=== PATIENT | female | born 1970 | race African-American/Black ===

== ENCOUNTER 2019-06-26 12:59 | Inpatient (IN) ==
[2019-06-26] MEDS ORDERED: NS 1000 ML 1,000 ML IV ONE (13:05)
[2019-06-26 16:42] LABS: BASOPHILS # (AUTO) 0.1 X10^3/uL (0.0-0.1); BASOPHILS % (AUTO) 0.8 % (0.2-1.0); EOSINOPHILS # (AUTO) 0.1 x10^3/uL (0.0-0.2); EOSINOPHILS % (AUTO) 0.9 % (0.9-2.9); HEMATOCRIT 36.2 % (36.0-47.0); HEMOGLOBIN 12.3 g/dL (12.0-16.0); LYMPHOCYTES # (AUTO) 2.5 X10^3/uL (1.3-2.9); LYMPHOCYTES % (AUTO) 32.1 % (21.0-51.0); MEAN CORPUSCULAR HGB CONC 33.9 g/dL (33.0-35.0); MEAN CORPUSCULAR VOLUME 88.6 fL (80.0-100.0); MEAN PLATELET VOLUME 8.1 fL (7.4-11.0); MONOCYTES # (AUTO) 0.4 x10^3/uL (0.3-0.8); MONOCYTES % (AUTO) 5.1 % (0.0-13.0); NEUTROPHILS # (AUTO) 4.8 x10^3/uL (2.2-4.8); NEUTROPHILS % (AUTO) 61.1 % (42.0-75.0); PLATELET COUNT 418 X10^3/uL (150.0-450.0); RED BLOOD COUNT 4.09 X10^6/uL (3.5-5.4); RED CELL DISTRIBUTION WIDTH 13.1 % (11.6-16.5); WHITE BLOOD COUNT 7.9 X10^3/uL (3.6-10.0)
[2019-06-26] MEDS ORDERED: NS 1000 ML 1,000 ML ONE (16:49)
[2019-06-26] MEDS ORDERED: ROCEPHIN VIAL 1 GRAM ONE (16:49)
[2019-06-26] MEDS ORDERED: NS 100 ML IV 100 ML IV ONE (16:50)
[2019-06-26 16:54] LABS: ALANINE AMINOTRANSFERASE 35 Units/L (12-78); ALBUMIN 3.4 g/dL (3.4-5.0); ALKALINE PHOSPHATASE 171 Units/L (46-116); AMYLASE 56 Units/L (25-115); ASPARTATE AMINO TRANSFERASE 17 Units/L (15-37); BLOOD UREA NITROGEN 21 mg/dL (7-18); CALCIUM 8.8 mg/dL (8.5-10.1); CARBON DIOXIDE 25.4 mmol/L (21-32); CHLORIDE 94 mmol/L (98-107); COR NA(FOR HYPERGLY) 140 mmol/L (136-145); CREATININE 1.65 mg/dL (0.55-1.02); LIPASE 95 Units/L (73-393); SODIUM 130 mmol/L (136-145); TOTAL PROTEIN 8.5 g/dL (6.4-8.2); eGFR NON BLACK RACES 36 (>60)
[2019-06-26] MEDS: HumuLIN R SC PRN ×2 (17:09→23:00)
[2019-06-26] MEDS ORDERED: HumuLIN R ONE ×2 (17:15→22:56)
[2019-06-26 17:36] VITALS: BMI 39.5
[2019-06-26] MEDS: NS 1000 ML 1,000 ML IV SCH ×2 (19:54→23:42)
[2019-06-26] MEDS: MORPHINE SULFATE INJ 2 MG INJ IVP PRN (20:35)
[2019-06-26 21:54] LABS: BILIRUBIN,URINE NEGATIVE (NEGATIVE); BLOOD/HEMOGLOBIN,URINE NEGATIVE (NEGATIVE); GLUCOSE, URINE 4+ (NEGATIVE); KETONES,URINE NEGATIVE (NEGATIVE); LEUKOCYTE ESTERASE ,URINE NEGATIVE (NEGATIVE); NITRITES,URINE NEGATIVE (NEGATIVE); PROTEIN,URINE NEGATIVE (NEGATIVE); UROBILINOGEN,URINE NORMAL (NORMAL)
[2019-06-26 21:58] LABS: APPEARANCE,URINE CLEAR (CLEAR); COLOR,URINE YELLOW (YELLOW)
[2019-06-27] MEDS: MORPHINE SULFATE INJ 2 MG INJ IVP PRN ×3 (02:05→19:47)
[2019-06-27] MEDS: ZOFRAN INJ 4 MG VIAL IVP PRN ×2 (02:06→19:48)
[2019-06-27] MEDS: HumuLIN R SC PRN ×3 (02:18→20:48)
[2019-06-27] MEDS: NS 1000 ML 1,000 ML IV SCH ×4 (02:59→19:45)
[2019-06-27 06:32] LABS: BASOPHILS % (AUTO) 0.5 % (0.2-1.0); EOSINOPHILS # (AUTO) 0.1 x10^3/uL (0.0-0.2); EOSINOPHILS % (AUTO) 1.3 % (0.9-2.9); HEMATOCRIT 33.2 % (36.0-47.0); HEMOGLOBIN 11.4 g/dL (12.0-16.0); LYMPHOCYTES # (AUTO) 2.4 X10^3/uL (1.3-2.9); LYMPHOCYTES % (AUTO) 35.1 % (21.0-51.0); MEAN CORPUSCULAR HEMOGLOBIN 29.6 pg (27.0-34.0); MEAN CORPUSCULAR HGB CONC 34.3 g/dL (33.0-35.0); MEAN CORPUSCULAR VOLUME 86.2 fL (80.0-100.0); MEAN PLATELET VOLUME 7.7 fL (7.4-11.0); MONOCYTES # (AUTO) 0.5 x10^3/uL (0.3-0.8); NEUTROPHILS # (AUTO) 3.9 x10^3/uL (2.2-4.8); NEUTROPHILS % (AUTO) 56.1 % (42.0-75.0); PLATELET COUNT 364 X10^3/uL (150.0-450.0); RED BLOOD COUNT 3.86 X10^6/uL (3.5-5.4); WHITE BLOOD COUNT 6.9 X10^3/uL (3.6-10.0)
[2019-06-27 06:39] LABS: ALANINE AMINOTRANSFERASE 29 Units/L (12-78); ALBUMIN 2.8 g/dL (3.4-5.0); ALKALINE PHOSPHATASE 141 Units/L (46-116); ASPARTATE AMINO TRANSFERASE 16 Units/L (15-37); BLOOD UREA NITROGEN 18 mg/dL (7-18); CALCIUM 8.2 mg/dL (8.5-10.1); CARBON DIOXIDE 28.4 mmol/L (21-32); CHLORIDE 103 mmol/L (98-107); COR CA(FOR HYPOALB) 9.2 mg/dL (8.5-10.1); COR NA(FOR HYPERGLY) 140 mmol/L (136-145); CREATININE 0.89 mg/dL (0.55-1.02); SODIUM 138 mmol/L (136-145); TOTAL PROTEIN 7.6 g/dL (6.4-8.2); eGFR NON BLACK RACES > 60 (>60)
[2019-06-27] MEDS ORDERED: NS 100 ML IV + SPIKE MINIBAG* 100 ML IV ONE (08:39)
[2019-06-27] MEDS: ROCEPHIN VIAL 1 GRAM IM SCH (09:18)
--- NOTE | 2019-06-27 09:36 | CT ---
HISTORY:Right upper quadrant abdominal painStudy: CT abdomen and pelvis with contrastComparison:NoneTechnique: Multiple axial images of the abdomen and pelvis were obtained with IV contrast. Oral contrast was administered. Dose reduction techniques including Automated Exposure Control (AEC) and adjustment of mA and kV were utilized.FINDINGS:The lung bases are clear. The liver, spleen, pancreas, and adrenal glands are unremarkable in their CT appearance. Gallbladder is removed.No renal calculi or obstructive uropathy. Seen best on coronal image 35, sagittal image 49 and axial image 22 there is tiny subcapsular low attenuation at the upper pole of the right kidney of uncertain etiology with suggestion of minimal adjacent perinephric stranding.No free intraperitoneal air . No evidence of intestinal obstruction or inflammation. Oral contrast reaches the cecum. Appendix is normal. No free fluid or abscess identified.The soft tissues and osseous structures are intact . The vascular structures are unremarkable . No pathologically enlarged lymph nodes are identified.Small amount of intraluminal air seen within the urinary bladder with mild bladder wall thickening.IMPRESSION ABDOMEN/PELVIS:1. Tiny subcapsular hypodensity at the upper pole of the right kidney with adjacent perinephric stranding of uncertain etiology, correlate for renal trauma or infection. Findings could also be chronic in nature, no prior exams are available for comparison.2. Mild urinary bladder wall thickening and small amount of intraluminal air which may be due to recent instrumentation but correlation with urinalysis is recommended to exclude infection.3. Prior cholecystectomy.Electronically signed by: ISRA MILLER (Jun 27, 2019 09:34:42)
[2019-06-27] MEDS ORDERED: GLUCOPHAGE ONE (16:15)
[2019-06-27] MEDS: DIFLUCAN PO SCH (16:26)
[2019-06-27] MEDS: GLUCOPHAGE PO SCH (16:27)
[2019-06-28] MEDS: MORPHINE SULFATE INJ 2 MG INJ IVP PRN ×4 (01:26→17:46)
[2019-06-28] MEDS: ZOFRAN INJ 4 MG VIAL IVP PRN ×3 (01:27→17:46)
[2019-06-28] MEDS: NS 1000 ML 1,000 ML IV SCH ×3 (05:10→17:45)
[2019-06-28] MEDS ORDERED: GLUCOPHAGE ONE ×2 (05:46→17:10)
[2019-06-28 05:48] LABS: ALANINE AMINOTRANSFERASE 29 Units/L (12-78); ALBUMIN 2.7 g/dL (3.4-5.0); ALKALINE PHOSPHATASE 130 Units/L (46-116); ASPARTATE AMINO TRANSFERASE 18 Units/L (15-37); BLOOD UREA NITROGEN 13 mg/dL (7-18); CALCIUM 8.2 mg/dL (8.5-10.1); CARBON DIOXIDE 29.4 mmol/L (21-32); CHLORIDE 102 mmol/L (98-107); COR CA(FOR HYPOALB) 9.2 mg/dL (8.5-10.1); COR NA(FOR HYPERGLY) 140 mmol/L (136-145); CREATININE 0.82 mg/dL (0.55-1.02); SODIUM 136 mmol/L (136-145); TOTAL PROTEIN 7.3 g/dL (6.4-8.2); eGFR NON BLACK RACES > 60 (>60)
[2019-06-28] MEDS: HumuLIN R SC PRN ×3 (05:56→17:41)
[2019-06-28 06:10] LABS: BASOPHILS % (AUTO) 0.6 % (0.2-1.0); EOSINOPHILS # (AUTO) 0.1 x10^3/uL (0.0-0.2); HEMATOCRIT 33.3 % (36.0-47.0); HEMOGLOBIN 11.4 g/dL (12.0-16.0); LYMPHOCYTES # (AUTO) 2.4 X10^3/uL (1.3-2.9); MEAN CORPUSCULAR HEMOGLOBIN 29.8 pg (27.0-34.0); MEAN CORPUSCULAR HGB CONC 34.1 g/dL (33.0-35.0); MEAN CORPUSCULAR VOLUME 87.4 fL (80.0-100.0); MONOCYTES # (AUTO) 0.2 x10^3/uL (0.3-0.8); MONOCYTES % (AUTO) 4.2 % (0.0-13.0); NEUTROPHILS # (AUTO) 3.2 x10^3/uL (2.2-4.8); NEUTROPHILS % (AUTO) 54.2 % (42.0-75.0); PLATELET COUNT 367 X10^3/uL (150.0-450.0); RED BLOOD COUNT 3.81 X10^6/uL (3.5-5.4); RED CELL DISTRIBUTION WIDTH 13.1 % (11.6-16.5); WHITE BLOOD COUNT 5.9 X10^3/uL (3.6-10.0)
[2019-06-28] MEDS: GLUCOPHAGE PO SCH ×2 (06:16→17:39)
[2019-06-28] MEDS: ROCEPHIN VIAL 1 GRAM IM SCH (08:06)
[2019-06-28] MEDS: DIFLUCAN PO SCH (08:06)
[2019-06-28] MEDS: LEVEMIR SC SCH ×2 (14:10→20:37)
[2019-06-28 14:55] LABS: CKMB % 1.5 % (<4); CREATINE KINASE 67 Units/L (26-192); CREATINE KINASE MB < 1.0 ng/mL (0-4.0); TROPONIN I < 0.02 ng/mL (0-1.5)
--- NOTE | 2019-06-28 18:35 | DR.H&P ---
H&P - History & Physical for Day of: H&P Date: 06/26/19 - Chief Complaint Chief Complaint: ABNORMAL LABS, ABDOMINAL PAIN - History of Present Illness History of Present Illness: IS A 48 YEAR OLD PATIENT OF OURS. SHE PRESENTED TO THE HOSPITAL A DIRECT ADMISSION DUE TO ABNORMAL LABS THAT WERE OBTAINED IN THE OFFICE AND RIGHT UPPER QUADRANT ABDOMINAL PAIN. LABS REVEALED HYPERGLYCEMIA, HYPONATREMIA, AND ELEVATED LFTs. ON ARRIVAL TO THE HOSPITAL, VITALS WERE 98.7-109-16-99%-135/76. LABS WERE OBTAINED. ABNORMAL LAB VALUES INCLUDE THE FOLLOWING: SODIUM 130, CHLORIDE 94, BUN 21, CREATININE 1.65, GLUCOSE 530, ALK PHOS 171, TOTAL PROTEIN 8.5, GLOBULIN 5.1, HEMOGLOBIN A1C 12.1. URINALYSIS REVEALED 4+ GLUCOSE, OTHERWISE UNREMARKABLE. SHE WAS STARTED ON NORMAL SALINE AT 100ML/HR, MORPHINE 2MG IV Q4H PRN PAIN, HUMULIN R SLIDING SCALE, AND ZOFRAN 4MG IV Q6H PRN. WE WILL OBTAIN AN ABDOMEN/PELVIS CT WITH CONTRAST IN THE MORNING. OTHERWISE, WE WILL FOLLOW UP WITH AM LABS AND CONTINUE TO MONITOR. - Past Medical History Past Medical History: Diabetes - Past Surgical History Surgical History: Cholecystectomy, Hysterectomy, Ortho Surgery - Family History Family Medical History: Diabetes Mellitus, Cancer, [place], Coronary Artery Disease, Sudden Cardiac , Hypertension - Social History Does patient currently use any type of tobacco product: No Have you used tobacco products in the last 12 months: No Type of Tobacco Use: None Does any household member use tobacco: No Alcohol Use: None Drug Use: None - Medications Home Medications: penicillin G Allergy (Verified 06/26/19 17:31) CONTINUE taking the following medications NK 06/26/19 [History] - Review of Systems Constitutional: Weakness Eyes: No Symptoms Reported ENT: No Symptoms Reported Respiratory: No Symptoms Reported Cardiovascular: No Symptoms Reported Gastrointestinal: See HPI, Nausea, Abdominal Pain Genitourinary: No Symptoms Reported Musculoskeletal: No Symptoms Reported Skin: No Symptoms Reported Neurological: Weakness - Physical Exam Vital Signs: Temperature 98.5 F Pulse Rate [Right Radial] 84 Respiratory Rate 18 Blood Pressure [Right Arm] 187/90 Blood Pressure [Left Arm] 146/85 O2 Sat by Pulse Oximetry 97 Oriented: Normal Eyes: Normal Nose: Normal Throat: Normal Respiratory: Diminished Throughout Cardiovascular: Normal : Normal Auscultation: Bowel Sounds: Normal Palpation: Normal Tenderness: RUQ, Moderate. negative: Rebound, Guarding, Rigidity Skin: Normal Musculoskeletal: Normal Psychiatric: Normal Mood Description: Calm Affect: Normal Speech Pattern: Clear - Assessment/Plan (1) Hyponatremia Status: Acute Plan: NORMAL SALINE AT 100 ML/HR, CONTINUE TO MONITOR (2) Diabetes mellitus with hyperglycemia Qualifiers: Diabetes mellitus type: type 2 Diabetes mellitus intermediate insulin use: without intermediate use Qualified Code(s): E11.65 - Type 2 diabetes mellitus with hyperglycemia Status: Acute Plan: HUMULIN R SLIDING SCALE, CONTINUE TO MONITOR OTBS (3) Abdominal pain Qualifiers: Abdominal location: right upper quadrant Qualified Code(s): R10.11 - Right upper quadrant pain Status: Acute Plan: OBTAIN ABDOMEN/PELVIS CT, MORPHINE PRN, ZOFRAN PRN, CONTINUE TO MONITOR - Allergies Allergies/Adverse Reactions: Allergies Allergy/AdvReac Type Severity Reaction Status Date / Time penicillin G Allergy Verified 06/26/19 17:31
[2019-06-28] MEDS: SNACK - Diabetic Appropriate PO SCH (20:37)
--- NOTE | 2019-06-28 20:46 | PCM.PROG ---
Progress Note - Progress Note for Day of Date of Exam: 06/28/19 - Subjective Subjective: WAS ADMITTED FOR HYPONATREMIA, HYPERGLYCEMIA, AND RUQ ABDOMINAL PAIN. TODAY, SHE IS ALERT AND ORIENTED, LYING IN BED ON MORNING ROUNDS. SHE CONTINUES WITH ABDOMINAL PAIN, BUT REPORTS SLIGHT IMPROVEMENT SINCE YESTERDAY. GLUCOSE LEVELS HAVE DECREASED SINCE STARTING SLIDING SCALE, BUT RE MAIN ELEVATED. ON EXAMINATION, HEART IS REGULAR IN RATE AND RHYTHM. BILATERAL LUNGS ARE NOTED WITH DIMINISHED LUNG SOUNDS THROUGHOUT. ABDOMEN IS ROUND, SOFT, AND NOTED WITH MILD, RUQ TENDERNESS. NORMAL BOWEL SOUNDS IN ALL QUADRANTS. HER VITALS THIS MORNING ARE: 99.2-90-18-99%-146/85. LABS WERE OBTAINED. ABNORMAL LAB VALUES INCLUDE THE FOLLOWING: HGB11.4, HCT 33.3, GLUCOSE 259, CALCIUM 8.2, ALK PHOS 130, ALBUMIN 2.7. AN ABDOMEN/PELVIS CT WAS OBTAINED YESTERDAY AND REVEALED: 1. Tiny subcapsular hypodensity at the upper pole of the right kidney with adjacent perinephric stranding of uncertain etiology, correlate for renal trauma or infection. Findings could also be chronic in nature, no prior exams are available for comparison. 2. Mild urinary bladder wall thickening and small amount of intraluminal air which may be due to recent instrumentation but correlation with urinalysis is recommended to exclude infection. 3. Prior cholecystectomy. SHE IS CURRENTLY RECEIVING NORMAL SALINE AT 100ML/HR, HUMULIN R SLIDING SCALE, MORPHINE PRN, AND ZOFRAN PRN. TODAY, WE WILL START METFORMIN 500MG PO BID AND LEVEMIR 10 UNITS SC BID. OTHERWISE, WE WILL FOLLOW UP WITH AM LABS AND CONTINUE TO MONITOR. - Past Medical Family Social History Past Med/Fam/Surg Hx: No changes since H&P Allergies: Allergies penicillin G Allergy (Verified 06/26/19 17:31) - Review of Systems ROS: No change since H&P - Vital Signs and I&O's Vital Signs: Temperature 98.5 F Pulse Rate [Right Radial] 84 Respiratory Rate 15 Blood Pressure [Right Arm] 187/90 Blood Pressure [Left Arm] 146/85 O2 Sat by Pulse Oximetry 97 Intake and Output: Intake & Output 06/26/19 06/27/19 06/28/19 06/29/19 11:59 11:59 11:59 11:59 Intake Total 1803 / 1803 3680 / 3680 700 / 700 Balance 1803 / 1803 3680 / 3680 700 / 700 - Physical Exam Oriented: Normal Eyes: Normal Nose: Normal Throat: Normal Respiratory: Normal, Diminished Cardiovascular: Normal : Normal Auscultation: Bowel Sounds: Normal Palpation: Normal Tenderness: RUQ, Mild. negative: Rebound, Guarding, Rigidity Skin: Normal Musculoskeletal: Normal Psychiatric: Normal Mood Description: Calm Affect: Normal Speech Pattern: Clear, Appropriate - Laboratory and Diagnostics Result Diagrams: 06/28/19 04:10 06/28/19 04:10 Labs: Laboratory WBC 5.9 X10^3/uL (3.6-10.0) 06/28/19 04:10 RBC 3.81 X10^6/uL (3.5-5.4) 06/28/19 04:10 Hgb 11.4 g/dL (12.0-16.0) L 06/28/19 04:10 Hct 33.3 % (36.0-47.0) L 06/28/19 04:10 MCV 87.4 fL (80.0-100.0) 06/28/19 04:10 MCH 29.8 pg (27.0-34.0) 06/28/19 04:10 MCHC 34.1 g/dL (33.0-35.0) 06/28/19 04:10 RDW 13.1 % (11.6-16.5) 06/28/19 04:10 Plt Count 367 X10^3/uL (150.0-450.0) 06/28/19 04:10 MPV 8.0 fL (7.4-11.0) 06/28/19 04:10 Neut % (Auto) 54.2 % (42.0-75.0) 06/28/19 04:10 Lymph % (Auto) 40.0 % (21.0-51.0) 06/28/19 04:10 [place] % (Auto) 4.2 % (0.0-13.0) 06/28/19 04:10 Eos % (Auto) 1.0 % (0.9-2.9) 06/28/19 04:10 Baso % (Auto) 0.6 % (0.2-1.0) 06/28/19 04:10 Neut # (Auto) 3.2 x10^3/uL (2.2-4.8) 06/28/19 04:10 Lymph # (Auto) 2.4 X10^3/uL (1.3-2.9) 06/28/19 04:10 [place] # (Auto) 0.2 x10^3/uL (0.3-0.8) L 06/28/19 04:10 Eos # (Auto) 0.1 x10^3/uL (0.0-0.2) 06/28/19 04:10 Baso # (Auto) 0.0 X10^3/uL (0.0-0.1) 06/28/19 04:10 Absolute Nucleated RBC 0.1 /100WBC 06/28/19 04:10 Sodium 136 mmol/L (136-145) 06/28/19 04:10 Corrected Sodium 140 mmol/L (136-145) 06/28/19 04:10 Potassium 4.3 mmol/L (3.5-5.1) 06/28/19 04:10 Chloride 102 mmol/L (98-107) 06/28/19 04:10 Carbon Dioxide 29.4 mmol/L (21-32) 06/28/19 04:10 BUN 13 mg/dL (7-18) 06/28/19 04:10 Creatinine 0.82 mg/dL (0.55-1.02) 06/28/19 04:10 Est GFR (MDRD) Af Amer > 60 (>60) 06/28/19 04:10 Est GFR (MDRD) Non-Af > 60 (>60) 06/28/19 04:10 Glucose 259 mg/dL (65-99) H 06/28/19 04:10 POC Glucose (mg/dL) 231 mg/dL (65-99) H 06/28/19 20:03 Hemoglobin A1c 12.1 % 06/26/19 16:34 Calcium 8.2 mg/dL (8.5-10.1) L 06/28/19 04:10 Corrected Calcium 9.2 mg/dL (8.5-10.1) 06/28/19 04:10 Total Bilirubin 0.20 mg/dL (0.2-1.0) 06/28/19 04:10 AST 18 Units/L (15-37) 06/28/19 04:10 ALT 29 Units/L (12-78) 06/28/19 04:10 Alkaline Phosphatase 130 Units/L (46-116) H 06/28/19 04:10 Creatine Kinase 67 Units/L (26-192) 06/28/19 13:59 CK-MB (CK-2) < 1.0 ng/mL (0-4.0) 06/28/19 13:59 CK/CKMB % Calc 1.5 % (<4) 06/28/19 13:59 Troponin I < 0.02 ng/mL (0-1.5) 06/28/19 13:59 Total Protein 7.3 g/dL (6.4-8.2) 06/28/19 04:10 Albumin 2.7 g/dL (3.4-5.0) L 06/28/19 04:10 Globulin 4.6 g/dL (2.5-4.5) H 06/28/19 04:10 Albumin/Globulin Ratio 0.6 Ratio (1.1-2.1) L 06/28/19 04:10 Amylase 56 Units/L (25-115) 06/26/19 16:34 Lipase 95 Units/L (73-393) 06/26/19 16:34 Specimen Type Clean catch urine 06/26/19 21:30 Urine Color Yellow (YELLOW) 06/26/19 21: Urine Appearance Clear (CLEAR) 06/26/19 21:30 Urine pH 5.0 (5.0 - 8.0) 06/26/19 21:30 Ur Specific [place] 1.010 (1.000-1.030) 06/26/19 21:30 Urine Protein Negative (NEGATIVE) 06/26/19 21:30 Urine Glucose (UA) 4+ (NEGATIVE) 06/26/19 21:30 Urine Ketones Negative (NEGATIVE) 06/26/19 21: Urine Occult Blood Negative (NEGATIVE) 06/26/19 21: Urine Nitrite Negative (NEGATIVE) 06/26/19 21: Urine Bilirubin Negative (NEGATIVE) 06/26/19 21: Urine Urobilinogen Normal (NORMAL) 06/26/19 21:30 Ur Leukocyte Esterase Negative (NEGATIVE) 06/26/19 21: - Plan (1) Hyponatremia Status: Acute Plan: NORMAL SALINE AT 100 ML/HR, CONTINUE TO MONITOR (2) Diabetes mellitus with hyperglycemia Status: Acute Qualifiers: Diabetes mellitus type: type 2 Diabetes mellitus fci insulin use: without fci use Qualified Code(s): E11.65 - Type 2 diabetes mellitus with hyperglycemia Plan: HUMULIN R SLIDING SCALE, LEVEMIR 10 UNITS SC BID, METFORMIN 500MG PO BID, CONTINUE TO MONITOR OTBS (3) Abdominal pain Status: Acute Qualifiers: Abdominal location: right upper quadrant Qualified Code(s): R10.11 - Right upper quadrant pain Plan: OBTAIN ABDOMEN/PELVIS CT, MORPHINE PRN, ZOFRAN PRN, CONTINUE TO MONITOR
[2019-06-29] MEDS: MORPHINE SULFATE INJ 2 MG INJ IVP PRN ×3 (00:46→21:55)
[2019-06-29] MEDS: ZOFRAN INJ 4 MG VIAL IVP PRN ×3 (00:47→21:56)
[2019-06-29] MEDS: NS 1000 ML 1,000 ML IV SCH ×4 (03:49→21:08)
[2019-06-29] MEDS ORDERED: GLUCOPHAGE ONE ×3 (04:58→15:58)
[2019-06-29] MEDS: GLUCOPHAGE PO SCH ×2 (06:07→16:08)
[2019-06-29 06:45] LABS: BASOPHILS % (AUTO) 0.3 % (0.2-1.0); EOSINOPHILS % (AUTO) 0.9 % (0.9-2.9); HEMATOCRIT 32.8 % (36.0-47.0); HEMOGLOBIN 11.4 g/dL (12.0-16.0); LYMPHOCYTES # (AUTO) 2.4 X10^3/uL (1.3-2.9); MEAN CORPUSCULAR HEMOGLOBIN 29.9 pg (27.0-34.0); MEAN CORPUSCULAR HGB CONC 34.7 g/dL (33.0-35.0); MEAN CORPUSCULAR VOLUME 86.3 fL (80.0-100.0); MEAN PLATELET VOLUME 7.7 fL (7.4-11.0); MONOCYTES # (AUTO) 0.3 x10^3/uL (0.3-0.8); MONOCYTES % (AUTO) 5.1 % (0.0-13.0); NEUTROPHILS # (AUTO) 2.6 x10^3/uL (2.2-4.8); NEUTROPHILS % (AUTO) 48.7 % (42.0-75.0); PLATELET COUNT 374 X10^3/uL (150.0-450.0); RED BLOOD COUNT 3.81 X10^6/uL (3.5-5.4); WHITE BLOOD COUNT 5.3 X10^3/uL (3.6-10.0)
[2019-06-29 06:48] LABS: ALANINE AMINOTRANSFERASE 26 Units/L (12-78); ALBUMIN 2.7 g/dL (3.4-5.0); ALKALINE PHOSPHATASE 120 Units/L (46-116); ASPARTATE AMINO TRANSFERASE 16 Units/L (15-37); BLOOD UREA NITROGEN 8 mg/dL (7-18); CALCIUM 8.3 mg/dL (8.5-10.1); CARBON DIOXIDE 29.2 mmol/L (21-32); CHLORIDE 102 mmol/L (98-107); COR CA(FOR HYPOALB) 9.3 mg/dL (8.5-10.1); COR NA(FOR HYPERGLY) 139 mmol/L (136-145); CREATININE 0.77 mg/dL (0.55-1.02); SODIUM 136 mmol/L (136-145); TOTAL PROTEIN 7.2 g/dL (6.4-8.2); eGFR NON BLACK RACES > 60 (>60)
[2019-06-29] MEDS: DIFLUCAN PO SCH (08:54)
[2019-06-29] MEDS: LEVEMIR SC SCH ×2 (08:56→21:04)
[2019-06-29] MEDS ORDERED: ROCEPHIN VIAL 1 GRAM 1 G in NS 100 ML IV + SPIKE MINIBAG* 100 ML IV SCH (09:00)
[2019-06-29 13:53] LABS: CRYPTOSPORIDIUM PARVUM ANTIGEN NEGATIVE (NEGATIVE); GIARDIA LAMBLIA ANTIGEN NEGATIVE (NEGATIVE)
[2019-06-29] MEDS: CIPRO IV 400 MG PREMIX* 400 MG/200 ML IV.SOLN. IV SCH ×2 (14:37→21:02)
[2019-06-29] MEDS: NORCO 5/325 MG TAB PO PRN (16:07)
[2019-06-29] MEDS ORDERED: ZESTRIL TAB 10 MG ONE (16:45)
[2019-06-29] MEDS: ZESTRIL TAB 10 MG PO SCH ×2 (16:50→21:02)
[2019-06-29] MEDS: BENTYL CAP 10 MG PO SCH ×2 (16:51→21:02)
[2019-06-29] MEDS: HumuLIN R SC PRN (17:13)
--- NOTE | 2019-06-29 17:23 | CT ---
HISTORYFacial numbness, onset 1 hour.STUDYBRAIN W/O CONCOMPARISONNone.TECHNIQUEMultiple axial images of the head were obtained from the skull base to the vertex without administration of IV contrast. Sagittal and coronal reformatted images were performed. Automated exposure control (AEC) was utilized to adjust the MA and/or kV.FINDINGSThe sulci, cisterns and ventricles are age appropriate. There is no evidence of acute territorial infarction, hemorrhage, mass, mass effect, or midline shift. There are no abnormal intra-axial or extra-axial fluid collections.There is no evidence of acute osseous abnormality. There is no significant soft tissue swelling. Visualized paranasal sinuses and mastoid air cells are predominately clear.IMPRESSION1. No evidence of acute intracranial abnormality.Electronically signed by: ABHISHEK BRANTLEY (Jun 29, 2019 17:22:46)
[2019-06-29 18:33] LABS: CKMB % 1.4 % (<4); CREATINE KINASE 70 Units/L (26-192); CREATINE KINASE MB < 1.0 ng/mL (0-4.0); TROPONIN I < 0.02 ng/mL (0-1.5)
[2019-06-29] MEDS: SNACK - Diabetic Appropriate PO SCH (21:06)
--- NOTE | 2019-06-29 21:08 | PCM.PROG ---
Progress Note - Progress Note for Day of Date of Exam: 06/29/19 - Subjective Subjective: WAS ADMITTED FOR HYPONATREMIA, HYPERGLYCEMIA, AND RUQ ABDOMINAL PAIN. TODAY, SHE IS ALERT AND ORIENTED, LYING IN BED ON MORNING ROUNDS. SHE CONTINUES WITH ABDOMINAL PAIN, BUT REPORTS SLIGHT IMPROVEMENT SINCE YESTERDAY. SHE DOES REPORT DIARRHEA AND NAUSEA THIS MORNING. GLUCOSE LEVELS HAVE DECREASED SINCE ADDING LEVEMIR. ON EXAMINATION, HEART IS REGULAR IN RATE AND RHYTHM. BILATERAL LUNGS ARE NOTED WITH DIMINISHED LUNG SOUNDS THROUGHOUT. ABDOMEN IS ROUND, SOFT, AND NOTED WITH MILD, RUQ TENDERNESS. NORMAL BOWEL SOUNDS IN ALL QUADRANTS. HER VITALS THIS MORNING ARE: 97.8-93-18-97%-166/95. LABS WERE OBTAINED. ABNORMAL LAB VALUES INCLUDE THE FOLLOWING: HGB 11.4, HCT 32.8, GLUCOSE 206, CALCIUM 8.3, ALK PHOS 120, ALUBMIN 2.7. SHE IS CURRENTLY RECEIVING NORMAL SALINE AT 100ML/HR, HUMULIN R SLIDING SCALE, MORPHINE PRN, AND ZOFRAN PRN. TODAY, WE WILL START METFORMIN 500MG PO BID AND LEVEMIR 10 UNITS SC BID. WE WILL CONTINUE WITH CURRENT PLAN OF CARE TODAY AND OBTAIN STOOL STUDIES. WE WILL START DIFLUCAN 200MG IV DAILY. OTHERWISE, WE WILL FOLLOW UP WITH AM LABS AND CONTINUE TO MONITOR. - Past Medical Family Social History Past Med/Fam/Surg Hx: No changes since H&P Allergies: Allergies penicillin G Allergy (Verified 06/26/19 17:31) - Review of Systems ROS: No change since H&P - Vital Signs and I&O's Vital Signs: Temperature 98.8 F Pulse Rate [Right Radial] 85 Respiratory Rate 16 Blood Pressure [Right Arm] 158/78 Blood Pressure [Left Arm] 220/118 O2 Sat by Pulse Oximetry 96 Intake and Output: Intake & Output 06/27/19 06/28/19 06/29/19 06/30/19 11:59 11:59 11:59 11:59 Intake Total 1803 / 1803 3680 / 3680 3240 / 3240 1919 Balance 1803 / 1803 3680 / 3680 3240 / 3240 1919 - Physical Exam Oriented: Normal Eyes: Normal Nose: Normal Throat: Normal Respiratory: Normal, Diminished Cardiovascular: Normal : Normal Auscultation: Bowel Sounds: Normal Palpation: Normal Tenderness: RUQ, Mild. negative: Rebound, Guarding, Rigidity Skin: Normal Musculoskeletal: Normal Psychiatric: Normal Mood Description: Calm Affect: Normal Speech Pattern: Clear, Appropriate - Laboratory and Diagnostics Result Diagrams: 06/29/19 06:09 06/29/19 06:09 Labs: Laboratory WBC 5.3 X10^3/uL (3.6-10.0) 06/29/19 06:09 RBC 3.81 X10^6/uL (3.5-5.4) 06/29/19 06:09 Hgb 11.4 g/dL (12.0-16.0) L 06/29/19 06:09 Hct 32.8 % (36.0-47.0) L 06/29/19 06:09 MCV 86.3 fL (80.0-100.0) 06/29/19 06:09 MCH 29.9 pg (27.0-34.0) 06/29/19 06:09 MCHC 34.7 g/dL (33.0-35.0) 06/29/19 06:09 RDW 13.0 % (11.6-16.5) 06/29/19 06:09 Plt Count 374 X10^3/uL (150.0-450.0) 06/29/19 06:09 MPV 7.7 fL (7.4-11.0) 06/29/19 06:09 Neut % (Auto) 48.7 % (42.0-75.0) 06/29/19 06:09 Lymph % (Auto) 45.0 % (21.0-51.0) 06/29/19 06:09 [place] % (Auto) 5.1 % (0.0-13.0) 06/29/19 06:09 Eos % (Auto) 0.9 % (0.9-2.9) 06/29/19 06:09 Baso % (Auto) 0.3 % (0.2-1.0) 06/29/19 06:09 Neut # (Auto) 2.6 x10^3/uL (2.2-4.8) 06/29/19 06:09 Lymph # (Auto) 2.4 X10^3/uL (1.3-2.9) 06/29/19 06:09 [place] # (Auto) 0.3 x10^3/uL (0.3-0.8) 06/29/19 06:09 Eos # (Auto) 0.0 x10^3/uL (0.0-0.2) 06/29/19 06:09 Baso # (Auto) 0.0 X10^3/uL (0.0-0.1) 06/29/19 06:09 Absolute Nucleated RBC 0.0 /100WBC 06/29/19 06:09 Sodium 136 mmol/L (136-145) 06/29/19 06:09 Corrected Sodium 139 mmol/L (136-145) 06/29/19 06:09 Potassium 4.2 mmol/L (3.5-5.1) 06/29/19 06:09 Chloride 102 mmol/L (98-107) 06/29/19 06:09 Carbon Dioxide 29.2 mmol/L (21-32) 06/29/19 06:09 BUN 8 mg/dL (7-18) 06/29/19 06:09 Creatinine 0.77 mg/dL (0.55-1.02) 06/29/19 06:09 Est GFR (MDRD) Af Amer > 60 (>60) 06/29/19 06:09 Est GFR (MDRD) Non-Af > 60 (>60) 06/29/19 06:09 Glucose 206 mg/dL (65-99) H 06/29/19 06:09 POC Glucose (mg/dL) 231 mg/dL (65-99) H 06/28/19 20:03 Hemoglobin A1c 12.1 % 06/26/19 16:34 Calcium 8.3 mg/dL (8.5-10.1) L 06/29/19 06:09 Corrected Calcium 9.3 mg/dL (8.5-10.1) 06/29/19 06:09 Total Bilirubin 0.30 mg/dL (0.2-1.0) 06/29/19 06:09 AST 16 Units/L (15-37) 06/29/19 06:09 ALT 26 Units/L (12-78) 06/29/19 06:09 Alkaline Phosphatase 120 Units/L (46-116) H 06/29/19 06:09 Creatine Kinase 70 Units/L (26-192) 06/29/19 17:23 CK-MB (CK-2) < 1.0 ng/mL (0-4.0) 06/29/19 17: CK/CKMB % Calc 1.4 % (<4) 06/29/19 17: Troponin I < 0.02 ng/mL (0-1.5) 06/29/19 17:23 Total Protein 7.2 g/dL (6.4-8.2) 06/29/19 06:09 Albumin 2.7 g/dL (3.4-5.0) L 06/29/19 06:09 Globulin 4.5 g/dL (2.5-4.5) 06/29/19 06:09 Albumin/Globulin Ratio 0.6 Ratio (1.1-2.1) L 06/29/19 06:09 Amylase 56 Units/L (25-115) 06/26/19 16:34 Lipase 95 Units/L (73-393) 06/26/19 16:34 Specimen Type Clean catch urine 06/26/19 21:30 Urine Color Yellow (YELLOW) 06/26/19 21:30 Urine Appearance Clear (CLEAR) 06/26/19 21:30 Urine pH 5.0 (5.0 - 8.0) 06/26/19 21:30 Ur Specific [place] 1.010 (1.000-1.030) 06/26/19 21:30 Urine Protein Negative (NEGATIVE) 06/26/19 21:30 Urine Glucose (UA) 4+ (NEGATIVE) 06/26/19 21:30 Urine Ketones Negative (NEGATIVE) 06/26/19 21:30 Urine Occult Blood Negative (NEGATIVE) 06/26/19 21:30 Urine Nitrite Negative (NEGATIVE) 06/26/19 21:30 Urine Bilirubin Negative (NEGATIVE) 06/26/19 21:30 Urine Urobilinogen Normal (NORMAL) 06/26/19 21:30 Ur Leukocyte Esterase Negative (NEGATIVE) 06/26/19 21:30 Stool Description 30g,brown,unformed 06/29/19 12:05 Stool Description 30g,brown,unformed 06/29/19 12:05 Stl Occult Blood (IFOB) Negative (NEGATIVE) 06/29/19 12:05 Stool for White Cells Positive (NEGATIVE) A 06/29/19 12:05 Stl C. diff Tox B Gene Negative (NEGATIVE) 06/29/19 12:05 Stl C. diff [id number] Negative (NEGATIVE) 06/29/19 12:05 Cryptosporid parvum Ag Negative (NEGATIVE) 06/29/19 12:05 Giardia lamblia Ag Negative (NEGATIVE) 06/29/19 12:05 - Plan (1) Hyponatremia Status: Acute Plan: NORMAL SALINE AT 100 ML/HR, CONTINUE TO MONITOR (2) Diabetes mellitus with hyperglycemia Status: Acute Qualifiers: Diabetes mellitus type: type 2 Diabetes mellitus fdc insulin use: without fdc use Qualified Code(s): E11.65 - Type 2 diabetes mellitus with hyperglycemia Plan: HUMULIN R SLIDING SCALE, LEVEMIR 10 UNITS SC BID, METFORMIN 500MG PO BID, CONTINUE TO MONITOR OTBS (3) Abdominal pain Status: Acute Qualifiers: Abdominal location: right upper quadrant Qualified Code(s): R10.11 - Right upper quadrant pain Plan: BENT[place], MORPHINE PRN, ZOFRAN PRN, CONTINUE TO MONITOR (4) Diarrhea Status: Acute Qualifiers: Diarrhea type: presumed infectious Qualified Code(s): R19.7 - Diarrhea, unspecified Plan: STOOL STUDIES, CONTINUE TO MONITOR
[2019-06-29 21:41] LABS: CKMB % 1.5 % (<4); CREATINE KINASE 68 Units/L (26-192); CREATINE KINASE MB < 1.0 ng/mL (0-4.0); TROPONIN I < 0.02 ng/mL (0-1.5)
[2019-06-30] MEDS: NORCO 5/325 MG TAB PO PRN (01:36)
[2019-06-30 01:52] LABS: CKMB % 1.5 % (<4); CREATINE KINASE 68 Units/L (26-192); CREATINE KINASE MB < 1.0 ng/mL (0-4.0); TROPONIN I < 0.02 ng/mL (0-1.5)
[2019-06-30] MEDS: NS 1000 ML 1,000 ML IV SCH ×3 (04:09→22:23)
[2019-06-30] MEDS ORDERED: GLUCOPHAGE ONE ×2 (05:38→16:17)
[2019-06-30] MEDS: HumuLIN R SC PRN ×3 (05:46→16:09)
[2019-06-30] MEDS: GLUCOPHAGE PO SCH ×2 (06:23→16:09)
[2019-06-30 06:25] LABS: BASOPHILS % (AUTO) 0.4 % (0.2-1.0); EOSINOPHILS # (AUTO) 0.1 x10^3/uL (0.0-0.2); EOSINOPHILS % (AUTO) 1.1 % (0.9-2.9); HEMOGLOBIN 11.4 g/dL (12.0-16.0); LYMPHOCYTES # (AUTO) 2.2 X10^3/uL (1.3-2.9); LYMPHOCYTES % (AUTO) 39.9 % (21.0-51.0); MEAN CORPUSCULAR HEMOGLOBIN 29.8 pg (27.0-34.0); MEAN CORPUSCULAR HGB CONC 34.4 g/dL (33.0-35.0); MEAN CORPUSCULAR VOLUME 86.6 fL (80.0-100.0); MEAN PLATELET VOLUME 7.7 fL (7.4-11.0); MONOCYTES # (AUTO) 0.3 x10^3/uL (0.3-0.8); MONOCYTES % (AUTO) 5.1 % (0.0-13.0); NEUTROPHILS % (AUTO) 53.5 % (42.0-75.0); PLATELET COUNT 376 X10^3/uL (150.0-450.0); RED BLOOD COUNT 3.82 X10^6/uL (3.5-5.4); RED CELL DISTRIBUTION WIDTH 12.9 % (11.6-16.5); WHITE BLOOD COUNT 5.5 X10^3/uL (3.6-10.0)
[2019-06-30 07:02] LABS: ALANINE AMINOTRANSFERASE 25 Units/L (12-78); ALBUMIN 2.8 g/dL (3.4-5.0); ALKALINE PHOSPHATASE 113 Units/L (46-116); ASPARTATE AMINO TRANSFERASE 16 Units/L (15-37); BLOOD UREA NITROGEN 11 mg/dL (7-18); CALCIUM 8.7 mg/dL (8.5-10.1); CARBON DIOXIDE 28.8 mmol/L (21-32); CHLORIDE 100 mmol/L (98-107); COR CA(FOR HYPOALB) 9.7 mg/dL (8.5-10.1); COR NA(FOR HYPERGLY) 140 mmol/L (136-145); CREATININE 0.87 mg/dL (0.55-1.02); SODIUM 136 mmol/L (136-145); TOTAL PROTEIN 7.3 g/dL (6.4-8.2); eGFR NON BLACK RACES > 60 (>60)
[2019-06-30] MEDS: BENTYL CAP 10 MG PO SCH ×4 (09:32→20:51)
[2019-06-30] MEDS: ZESTRIL TAB 10 MG PO SCH ×2 (09:33→20:51)
[2019-06-30] MEDS: CIPRO IV 400 MG PREMIX* 400 MG/200 ML IV.SOLN. IV SCH ×2 (09:33→20:52)
[2019-06-30] MEDS: LEVEMIR SC SCH ×2 (09:33→21:15)
[2019-06-30] MEDS: DIFLUCAN 200 MG IV PREMIX* 200 MG/100 ML BAG IV SCH (14:21)
[2019-06-30] MEDS: ZOFRAN INJ 4 MG VIAL IVP PRN ×2 (14:21→19:50)
[2019-06-30] MEDS: MORPHINE SULFATE INJ 2 MG INJ IVP PRN (19:50)
[2019-06-30] MEDS: SNACK - Diabetic Appropriate PO SCH (21:15)
[2019-07-01] MEDS: MORPHINE SULFATE INJ 2 MG INJ IVP PRN ×3 (02:24→22:25)
[2019-07-01] MEDS: ZOFRAN INJ 4 MG VIAL IVP PRN ×3 (02:24→18:12)
[2019-07-01] MEDS ORDERED: GLUCOPHAGE ONE ×2 (04:55→15:55)
[2019-07-01] MEDS: GLUCOPHAGE PO SCH ×2 (06:05→15:59)
[2019-07-01 06:28] LABS: BASOPHILS % (AUTO) 0.6 % (0.2-1.0); EOSINOPHILS # (AUTO) 0.1 x10^3/uL (0.0-0.2); EOSINOPHILS % (AUTO) 1.2 % (0.9-2.9); HEMATOCRIT 32.7 % (36.0-47.0); HEMOGLOBIN 11.3 g/dL (12.0-16.0); LYMPHOCYTES # (AUTO) 2.4 X10^3/uL (1.3-2.9); LYMPHOCYTES % (AUTO) 43.3 % (21.0-51.0); MEAN CORPUSCULAR HEMOGLOBIN 29.9 pg (27.0-34.0); MEAN CORPUSCULAR HGB CONC 34.6 g/dL (33.0-35.0); MEAN CORPUSCULAR VOLUME 86.5 fL (80.0-100.0); MONOCYTES # (AUTO) 0.3 x10^3/uL (0.3-0.8); MONOCYTES % (AUTO) 5.4 % (0.0-13.0); NEUTROPHILS # (AUTO) 2.7 x10^3/uL (2.2-4.8); NEUTROPHILS % (AUTO) 49.5 % (42.0-75.0); PLATELET COUNT 367 X10^3/uL (150.0-450.0); RED BLOOD COUNT 3.78 X10^6/uL (3.5-5.4); RED CELL DISTRIBUTION WIDTH 13.1 % (11.6-16.5); WHITE BLOOD COUNT 5.5 X10^3/uL (3.6-10.0)
[2019-07-01 07:11] LABS: ALANINE AMINOTRANSFERASE 24 Units/L (12-78); ALBUMIN 2.8 g/dL (3.4-5.0); ALKALINE PHOSPHATASE 105 Units/L (46-116); ASPARTATE AMINO TRANSFERASE 18 Units/L (15-37); BLOOD UREA NITROGEN 9 mg/dL (7-18); CALCIUM 8.8 mg/dL (8.5-10.1); CARBON DIOXIDE 26.8 mmol/L (21-32); CHLORIDE 102 mmol/L (98-107); COR CA(FOR HYPOALB) 9.8 mg/dL (8.5-10.1); COR NA(FOR HYPERGLY) 140 mmol/L (136-145); SODIUM 138 mmol/L (136-145); TOTAL PROTEIN 7.3 g/dL (6.4-8.2); eGFR NON BLACK RACES > 60 (>60)
[2019-07-01] MEDS: BENTYL CAP 10 MG PO SCH ×4 (09:37→20:35)
[2019-07-01] MEDS: ZESTRIL TAB 10 MG PO SCH ×2 (09:38→20:35)
[2019-07-01] MEDS: LEVEMIR SC SCH ×2 (09:38→20:36)
[2019-07-01] MEDS: CIPRO IV 400 MG PREMIX* 400 MG/200 ML IV.SOLN. IV SCH ×2 (09:38→20:34)
[2019-07-01] MEDS: LEVSIN/MAALOX/LIDOC VISC PO SCH ×5 (10:43→20:42)
[2019-07-01] MEDS: PROTONIX INJ 40 MG VIAL IVP SCH ×2 (10:43→20:35)
[2019-07-01] MEDS: PEPCID 20 MG IV PREMIX* 20 MG/50 ML BAG IV SCH ×2 (10:43→20:35)
[2019-07-01] MEDS: HumuLIN R SC PRN (10:51)
[2019-07-01] MEDS: NS 1000 ML 1,000 ML IV SCH (12:20)
[2019-07-01] MEDS: DIFLUCAN 200 MG IV PREMIX* 200 MG/100 ML BAG IV SCH (13:22)
--- NOTE | 2019-07-01 16:44 | PCM.PROG ---
Progress Note - Progress Note for Day of Date of Exam: 06/30/19 - Subjective Subjective: WAS ADMITTED FOR HYPONATREMIA, HYPERGLYCEMIA, AND RUQ ABDOMINAL PAIN. TODAY, SHE IS ALERT AND ORIENTED, LYING IN BED ON MORNING ROUNDS. SHE CONTINUES WITH ABDOMINAL PAIN, BUT REPORTS SLIGHT IMPROVEMENT SINCE YESTERDAY. SHE DOES REPORT DIARRHEA AND NAUSEA THIS MORNING. ON EXAMINATION, HEART IS REGULAR IN RATE AND RHYTHM. BILATERAL LUNGS ARE NOTED WITH DIMINISHED LUNG SOUNDS THROUGHOUT. ABDOMEN IS ROUND, SOFT, AND NOTED WITH MILD, RUQ TENDERNESS. NORMAL BOWEL SOUNDS IN ALL QUADRANTS. HER VITALS THIS MORNING ARE: 98.1-94-18-98%-173/93. LABS WERE OBTAINED. ABNORMAL LAB VALUES INCLUDE THE FOLLOWING: HGB 11.3, HCT 32.7, GLUCOSE 192, ALBUMIN 2.8. SHE IS CURRENTLY RECEIVING NORMAL SALINE AT 100ML/HR, HUMULIN R SLIDING SCALE, MORPHINE PRN, AND ZOFRAN PRN. TODAY, WE WILL INCREASE LEVEMIR TO 15 UNITS SC BID AND ADD CIPRO. WE WILL INCREASE LISINOPRIL TO 10MG PO BID. OTHERWISE, WE WILL CONTINUE WITH CURRENT PLAN OF CARE TODAY AND OBTAIN A STOOL FOR H-PYLORI. WE WILL FOLLOW UP WITH AM LABS AND CONTINUE TO MONITOR. - Past Medical Family Social History Past Med/Fam/Surg Hx: No changes since H&P Allergies: Allergies penicillin G Allergy (Verified 06/26/19 17:31) - Review of Systems ROS: No change since H&P - Vital Signs and I&O's Vital Signs: Temperature 98.4 F Pulse Rate [Left Brachial] 81 Pulse Rate [Right Radial] 58 Respiratory Rate 20 Blood Pressure [Right Arm] 162/97 Blood Pressure [Left Arm] 169/89 O2 Sat by Pulse Oximetry 96 Intake and Output: Intake & Output 06/29/19 06/30/19 07/01/19 07/02/19 11:59 11:59 11:59 11:59 Intake Total 3240 / 3240 4340 / 4340 3530 / 3530 1020 / 1020 Balance 3240 / 3240 4340 / 4340 3530 / 3530 1020 / 1020 - Physical Exam Oriented: Normal Eyes: Normal Nose: Normal Throat: Normal Respiratory: Normal, Diminished Cardiovascular: Normal : Normal Auscultation: Bowel Sounds: Normal Palpation: Normal Tenderness: RUQ, Mild. negative: Rebound, Guarding, Rigidity Skin: Normal Musculoskeletal: Normal Psychiatric: Normal Mood Description: Calm Affect: Normal Speech Pattern: Clear, Appropriate - Laboratory and Diagnostics Result Diagrams: 07/01/19 04:40 07/01/19 04:40 Labs: 06/30/19 08:20 Stool Stool Culture - Preliminary 06/30/19 08:20 Stool - Final Laboratory WBC 5.5 X10^3/uL (3.6-10.0) 07/01/19 04:40 RBC 3.78 X10^6/uL (3.5-5.4) 07/01/19 04:40 Hgb 11.3 g/dL (12.0-16.0) L 07/01/19 04:40 Hct 32.7 % (36.0-47.0) L 07/01/19 04:40 MCV 86.5 fL (80.0-100.0) 07/01/19 04:40 MCH 29.9 pg (27.0-34.0) 07/01/19 04:40 MCHC 34.6 g/dL (33.0-35.0) 07/01/19 04:40 RDW 13.1 % (11.6-16.5) 07/01/19 04:40 Plt Count 367 X10^3/uL (150.0-450.0) 07/01/19 04:40 MPV 8.0 fL (7.4-11.0) 07/01/19 04:40 Neut % (Auto) 49.5 % (42.0-75.0) 07/01/19 04:40 Lymph % (Auto) 43.3 % (21.0-51.0) 07/01/19 04:40 [place] % (Auto) 5.4 % (0.0-13.0) 07/01/19 04:40 Eos % (Auto) 1.2 % (0.9-2.9) 07/01/19 04:40 Baso % (Auto) 0.6 % (0.2-1.0) 07/01/19 04:40 Neut # (Auto) 2.7 x10^3/uL (2.2-4.8) 07/01/19 04:40 Lymph # (Auto) 2.4 X10^3/uL (1.3-2.9) 07/01/19 04:40 [place] # (Auto) 0.3 x10^3/uL (0.3-0.8) 07/01/19 04:40 Eos # (Auto) 0.1 x10^3/uL (0.0-0.2) 07/01/19 04:40 Baso # (Auto) 0.0 X10^3/uL (0.0-0.1) 07/01/19 04:40 Absolute Nucleated RBC 0.0 /100WBC 07/01/19 04:40 Sodium 138 mmol/L (136-145) 07/01/19 04:40 Corrected Sodium 140 mmol/L (136-145) 07/01/19 04:40 Potassium 3.9 mmol/L (3.5-5.1) 07/01/19 04:40 Chloride 102 mmol/L (98-107) 07/01/19 04:40 Carbon Dioxide 26.8 mmol/L (21-32) 07/01/19 04:40 BUN 9 mg/dL (7-18) 07/01/19 04:40 Creatinine 0.80 mg/dL (0.55-1.02) 07/01/19 04:40 Est GFR (MDRD) Af Amer > 60 (>60) 07/01/19 04:40 Est GFR (MDRD) Non-Af > 60 (>60) 07/01/19 04:40 Glucose 192 mg/dL (65-99) H 07/01/19 04:40 POC Glucose (mg/dL) 199 mg/dL (65-99) H 07/01/19 15:52 Hemoglobin A1c 12.1 % 06/26/19 16:34 Calcium 8.8 mg/dL (8.5-10.1) 07/01/19 04:40 Corrected Calcium 9.8 mg/dL (8.5-10.1) 07/01/19 04:40 Total Bilirubin 0.20 mg/dL (0.2-1.0) 07/01/19 04:40 AST 18 Units/L (15-37) 07/01/19 04:40 ALT 24 Units/L (12-78) 07/01/19 04:40 Alkaline Phosphatase 105 Units/L (46-116) 07/01/19 04:40 Creatine Kinase 68 Units/L (26-192) 06/30/19 01:18 CK-MB (CK-2) < 1.0 ng/mL (0-4.0) 06/30/19 01:18 CK/CKMB % Calc 1.5 % (<4) 06/30/19 01:18 Troponin I < 0.02 ng/mL (0-1.5) 06/30/19 01:18 Total Protein 7.3 g/dL (6.4-8.2) 07/01/19 04:40 Albumin 2.8 g/dL (3.4-5.0) L 07/01/19 04:40 Globulin 4.5 g/dL (2.5-4.5) 07/01/19 04:40 Albumin/Globulin Ratio 0.6 Ratio (1.1-2.1) L 07/01/19 04:40 Amylase 56 Units/L (25-115) 06/26/19 16:34 Lipase 95 Units/L (73-393) 06/26/19 16:34 Specimen Type Clean catch urine 06/26/19 21:30 Urine Color Yellow (YELLOW) 06/26/19 21:30 Urine Appearance Clear (CLEAR) 06/26/19 21:30 Urine pH 5.0 (5.0 - 8.0) 06/26/19 21:30 Ur Specific [place] 1.010 (1.000-1.030) 06/26/19 21:30 Urine Protein Negative (NEGATIVE) 06/26/19 21:30 Urine Glucose (UA) 4+ (NEGATIVE) 06/26/19 21:30 Urine Ketones Negative (NEGATIVE) 06/26/19 21:30 Urine Occult Blood Negative (NEGATIVE) 06/26/19 21:30 Urine Nitrite Negative (NEGATIVE) 06/26/19 21:30 Urine Bilirubin Negative (NEGATIVE) 06/26/19 21:30 Urine Urobilinogen Normal (NORMAL) 06/26/19 21:30 Ur Leukocyte Esterase Negative (NEGATIVE) 06/26/19 21:30 Stool Description 30g,brown,unformed 06/29/19 12:05 Stool Description 30g,brown,unformed 06/29/19 12:05 Stl Occult Blood (IFOB) Negative (NEGATIVE) 06/29/19 12:05 Stool for White Cells Positive (NEGATIVE) A 06/29/19 12:05 Stl C. diff Tox B Gene Negative (NEGATIVE) 06/29/19 12:05 Stl C. diff [id number] Negative (NEGATIVE) 06/29/19 12:05 Stool H. 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
[2019-07-01] MEDS: NORCO 5/325 MG TAB PO PRN (18:12)
[2019-07-01] MEDS: SNACK - Diabetic Appropriate PO SCH (20:41)
--- NOTE | 2019-07-01 22:49 | RAD ---
HISTORYABD PAIN HTN, DM, CHOLECYSTECTOMY, HYSTERECTOMY, ORTHOSTUDYACUTE ABDOMEN SERIESCOMPARISONFebruary 2018FINDINGSThe trachea is midline. The cardiac silhouette is [unremarkable]. [The lungs are clear without focal consolidation or effusion.Flat plate and upright evaluation of the abdomen demonstrates a [nonspecific bowel gas pattern]. The renal shadows are partially obscured by overlying bowel content. Surgical clips project over the right quadrant.IMPRESSION1. [No acute cardiopulmonary disease.]2. [Nonspecific bowel gas pattern.]Electronically signed by: KHOI WESLEY (Jul 01, 2019 22:47:44)
[2019-07-02] MEDS: ZOFRAN INJ 4 MG VIAL IVP PRN ×2 (00:08→06:27)
[2019-07-02] MEDS: NS 1000 ML 1,000 ML IV SCH (00:08)
[2019-07-02 05:54] LABS: BASOPHILS % (AUTO) 0.7 % (0.2-1.0); EOSINOPHILS % (AUTO) 0.8 % (0.9-2.9); HEMATOCRIT 31.5 % (36.0-47.0); LYMPHOCYTES # (AUTO) 2.7 X10^3/uL (1.3-2.9); LYMPHOCYTES % (AUTO) 48.2 % (21.0-51.0); MEAN CORPUSCULAR HEMOGLOBIN 30.1 pg (27.0-34.0); MEAN CORPUSCULAR HGB CONC 34.9 g/dL (33.0-35.0); MEAN CORPUSCULAR VOLUME 86.3 fL (80.0-100.0); MEAN PLATELET VOLUME 7.8 fL (7.4-11.0); MONOCYTES # (AUTO) 0.3 x10^3/uL (0.3-0.8); MONOCYTES % (AUTO) 6.2 % (0.0-13.0); NEUTROPHILS # (AUTO) 2.5 x10^3/uL (2.2-4.8); NEUTROPHILS % (AUTO) 44.1 % (42.0-75.0); PLATELET COUNT 354 X10^3/uL (150.0-450.0); RED BLOOD COUNT 3.65 X10^6/uL (3.5-5.4); RED CELL DISTRIBUTION WIDTH 13.2 % (11.6-16.5); WHITE BLOOD COUNT 5.6 X10^3/uL (3.6-10.0)
[2019-07-02] MEDS: GLUCOPHAGE PO SCH (06:00)
[2019-07-02 06:09] LABS: ALANINE AMINOTRANSFERASE 22 Units/L (12-78); ALBUMIN 2.8 g/dL (3.4-5.0); ALKALINE PHOSPHATASE 99 Units/L (46-116); ASPARTATE AMINO TRANSFERASE 15 Units/L (15-37); BLOOD UREA NITROGEN 10 mg/dL (7-18); CALCIUM 8.8 mg/dL (8.5-10.1); CARBON DIOXIDE 28.6 mmol/L (21-32); CHLORIDE 103 mmol/L (98-107); COR CA(FOR HYPOALB) 9.8 mg/dL (8.5-10.1); COR NA(FOR HYPERGLY) 139 mmol/L (136-145); CREATININE 0.89 mg/dL (0.55-1.02); SODIUM 138 mmol/L (136-145); TOTAL PROTEIN 7.1 g/dL (6.4-8.2); eGFR NON BLACK RACES > 60 (>60)
[2019-07-02] MEDS: MORPHINE SULFATE INJ 2 MG INJ IVP PRN (06:26)
[2019-07-02] MEDS: ZESTRIL TAB 10 MG PO SCH (08:47)
[2019-07-02] MEDS: PEPCID 20 MG IV PREMIX* 20 MG/50 ML BAG IV SCH (08:47)
[2019-07-02] MEDS: CIPRO IV 400 MG PREMIX* 400 MG/200 ML IV.SOLN. IV SCH (08:47)
[2019-07-02] MEDS: PROTONIX INJ 40 MG VIAL IVP SCH (08:47)
--- NOTE | 2019-07-02 09:07 | DR.CONSULT ---
Consult - Consultation for Day of: Date: 07/01/18 - Chief Complaint Chief Complaint: Patient referred for abdominal pain. Patient with complaints of dysphagia, nausea, vomiting, epigastric pain and diarrhea. - History of Present Illness History of Present Illness: Patient is a 48 yo female who was referred for abdominal pain. Patient with complaints of dysphagia, nausea, vomiting last vomited last ngiht, epigastric pain and diarrhea that has been ongoing for years. Patient denies dyspepsia, constipation, melena and hematochezia. Last colon was 09/30/14 which showed internal hemorrhoids. Last EGD was 08/11/15 which showed mild gastritis and mild esophagitis. Hgb 11.3, Hct 32.7, Plt 367, BUN 9, Creatinine 0.8, T. BIli 0.2, AST 18, ALT 24, ALP 105. Stool Positive for H- Pylori. Abdomen and pelvis CT showed Tiny. subcapsular hypodensity at the upper pole of the right kidney with adjacent. perinephric stranding of uncertain etiology, correlate for renal trauma or. infection. Findings could also be chronic in nature, no prior exams are. available for comparison. Mild urinary bladder wall thickening and small amount of intraluminal air which may be due to recent instrumentation but correlation with urinalysis is recommended to exclude infection. Prior cholecystectomy. - Past Medical History Past Medical History: Diabetes, Hypertension - Past Surgical History Surgical History: Cholecystectomy, Hysterectomy, Ortho Surgery - Family History Family Medical History: Diabetes Mellitus, Cancer, [place], Coronary Artery Disease, Sudden Cardiac , Hypertension - Social History Does patient currently use any type of tobacco product: No Have you used tobacco products in the last 12 months: No Type of Tobacco Use: None Does any household member use tobacco: No Alcohol Use: None Drug Use: None - Medications Home Medications: penicillin G Allergy (Verified 06/26/19 17:31) CONTINUE taking the following medications fluconazole 100 mg PO DAILY 06/30/19 [History] insulin detemir U-100 [Levemir U-100 Insulin] 10 unit SUBCUT BID 06/30/19 [History] metformin 500 mg PO BID 06/30/19 [History] New Prescriptions fluconazole [Diflucan] 100 mg PO DAILY #7 tab 06/29/19 [Rx] metformin 500 mg PO BIDWM #60 tab 06/29/19 [Rx] miconazole nitrate 1 applic TOPICAL BID #1 g 06/29/19 [Rx] ciprofloxacin HCl [Cipro] 500 mg PO BID #20 tab 06/30/19 [Rx] insulin glargine U-300 conc [Toujeo Max U-300 SoloStar] 30 unit SUBCUT Q24H #1 ml 06/30/19 [Rx] lisinopril 10 mg PO BID #60 tab 06/30/19 [Rx] ondansetron HCl [Zofran] 8 mg PO Q8H PRN #30 tab 06/30/19 [Rx] - Review of Systems Gastrointestinal: See HPI, Nausea, Vomiting, Abdominal Pain (epigastric), Diarrhea. denies: Constipation, Melena, Hematochezia - Physical Exam Vital Signs: Temperature 98.7 F Pulse Rate [Left Brachial] 93 Pulse Rate [Right Radial] 58 Respiratory Rate 18 Blood Pressure [Right Arm] 164/82 Blood Pressure [Left Arm] 142/85 O2 Sat by Pulse Oximetry 96 Oriented: Normal Eyes: Normal Ear: Normal Nose: Normal Throat: Normal Respiratory: Clear Throughout Cardiovascular: Normal Auscultation: Bowel Sounds: Normal Palpation: Normal, Other (no distention). negative: Spleen Enlarged, Liver Enlarged, Mass Pulsatile Tenderness: Epigastric Skin: Normal Musculoskeletal: Normal Psychiatric: Normal Mood Description: Calm Affect: Normal Speech Pattern: Clear, Appropriate - Plan Plan: Assessment. 1. Nausea, vomiting, Epigastric pain, H-Pylori. Plan. 1. Protonix IV, EGD in am. Plan reviewed with Dr. Reyes - Allergies Allergies/Adverse Reactions: Allergies Allergy/AdvReac Type Severity Reaction Status Date / Time penicillin G Allergy Verified 06/26/19 17:31
[2019-07-02] MEDS: LEVSIN/MAALOX/LIDOC VISC PO SCH ×2 (12:48→12:49)
[2019-07-02] MEDS: LEVEMIR SC SCH (12:48)
[2019-07-02] MEDS: BENTYL CAP 10 MG PO SCH ×2 (12:48→12:49)
[2019-07-02] MEDS ORDERED: DIPRIVAN VIAL 20 ML ONE ×2 (13:05→13:14)
[2019-07-02] MEDS: DIFLUCAN 200 MG IV PREMIX* 200 MG/100 ML BAG IV SCH (13:43)
[2019-07-02 14:40] VITALS: BP 156/71
[2019-07-02] MEDS ORDERED: REGLAN INJ 10 MG VIAL IVP SCH (16:30)
== END 2019-07-02 15:35 | disposition home or self-care (01) | DRG 392 ==
LOC: OBS → OBSVTOIN 16:19 → MED/SURG 06-27 15:15
PROVIDERS: ADMIT Internal Medicine; ATTEND Internal Medicine
DX: B96.81 Helicobacter pylori [H. pylori] as the cause of diseases classified elsewhere; E11.43 Type 2 diabetes mellitus with diabetic autonomic (poly)neuropathy; K20.8 Other esophagitis; K29.60 Other gastritis without bleeding; E87.1 Hypo-osmolality and hyponatremia; E11.65 Type 2 diabetes mellitus with hyperglycemia; R10.11 Right upper quadrant pain; R10.13 Epigastric pain; R19.7 Diarrhea, unspecified; R13.11 Dysphagia, oral phase; K31.84 Gastroparesis; I10 Essential (primary) hypertension; R11.2 Nausea with vomiting, unspecified; R20.0 Anesthesia of skin; R94.5 Abnormal results of liver function studies
CPT/HCPCS: 36415; 70450; 74022; 74177; 80053; 81003; 82150; 82270; 82550; 82553; 82947; 83036; 83630; 83690; 84484; 85025; 87045; 87328; 87329; 87338; 87449; 87493; 87899; 93005; A4222; C9113; S0028; J0696; J0744; J1450; J1815; J2270; J2405; J2704; J7030; J7050